=== PATIENT | female | born 2000 | race Caucasian/White ===

== ENCOUNTER 2024-08-23 11:50 | Emergency (ER) | payer OTHER, SELFPAY ==
[2024-08-23 12:38] LABS: SARS-CoV-2 Antigen CONTROL BLUE LINE VIS/BG OK; SARS-CoV-2 Antigen Rapid Res Negative (Negative)
--- NOTE | 2024-08-23 13:11 | ER ---
Nurse's Notes [facility] Name: Yair Escalante Age: 24 yrs Sex: Female : 2000 Arrival Date: 08/23/2024 Time: 11:50 Bed IW1 Private MD: Diagnosis: Acute upper respiratory infection, unspecified;Acute pharyngitis, unspecified Presentation: 08/23 11:58 Chief complaint: Patient states: she started having body aches and flu symptoms iw yesterday. patient reports everyone in her home tested positive for the flu over the last week. Coronavirus screen: Client presents with at least one sign or symptom that may indicate coronavirus-19. Ebola Screen: No symptoms or risks identified at this time. Initial Sepsis Screen: Does the patient meet any 2 criteria? No. Patient's initial sepsis screen is negative. Does the patient have a suspected source of infection? No. Patient's initial sepsis screen is negative. Risk Assessment: Do you want to hurt yourself or someone else? Patient reports no desire to harm self or others. Onset of symptoms was August 22, 2024. 11:58 Method Of Arrival: Ambulatory iw 11:58 Acuity: SILVIA 4 iw Triage Assessment: 12:00 General: Appears in no apparent distress. Behavior is calm, cooperative, appropriate iw for age, Reports feeling ill for. Pain: Complains of pain in generalized body aches. Neuro: Level of Consciousness is awake, alert, obeys commands, Oriented to person, place, time, situation, Appropriate for age. Cardiovascular: Patient's skin is warm and dry. Respiratory: Airway is patent Respiratory effort is even, unlabored, Respiratory pattern is regular, symmetrical. 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 Flu vaccine is not up to date. - Infectious Disease History:: Denies. - Social history:: Smoking status: Reported history of juuling and/or vaping. - Family history:: not pertinent. Screenin:00 [facility] ED Fall Risk Assessment (Adult) History of falling in the last 3 months, iw including since admission No falls in past 3 months (0 pts) Confusion or Disorientation No (0 pts) Intoxicated or Sedated No (0 pts) Impaired Gait No (0 pts) Mobility Assist Device Used No (0 pt) Altered Elimination No (0 pt) Score/Fall Risk Level 0 - 2 = Low Risk Oriented to surroundings, Maintained a safe environment, Educated pt \T\ family on fall prevention, incl call for assistance when getting out of bed, Assessed \T\ reinforced patient's understanding of fall precautions, Hourly rounding (assess needs \T\ fall precautionary measures) done, Used ambulatory aids as needed (educated on \T\ assisted with), Used gait belt as appropriate. Abuse screen: Denies threats or abuse. Nutritional screening: No deficits noted. Tuberculosis screening: No symptoms or risk factors identified. Assessment: 13:24 Reassessment: Patient appears in no apparent distress at this time. Patient and/or iw family updated on plan of care and expected duration. Pain level reassessed. Patient is alert, oriented x 3, equal unlabored respirations, skin warm/dry/pink. Vital Signs: 11:58 BP 130 / 87; Pulse 86; Resp 17; Temp 98.4; Pulse Ox 100% ; Weight 79.38 kg; Height 5 iw ft. 5 in. ; 11:58 Body Mass Index 29.12 (79.38 kg, 165.1 cm) ED Course: 11:54 Patient arrived in ED. ra3 11:57 Tha Talbot MD is Attending Physician. [facility] 11:59 Triage completed. iw 12:00 Arm band placed on right wrist. iw 12:05 Patient has correct armband on for positive identification. Adult w/ patient. ap3 12:05 Provided Education on: covid/flu testing information . ap3 12:05 COVID swab sent to lab. Flu and/or RSV swab sent to lab. ap3 12:05 SARS RAPID Sent. ap3 12:05 Flu Sent. ap3 12:05 No provider procedures requiring assistance completed. ap3 13:24 Linda Ritchie, RN is Primary Nurse. iw 13:25 Patient did not have IV access during this emergency room visit. iw Administered Medications: No medications were administered Medication: 12:01 VIS not applicable for this client. iw Outcome: 13:11 Discharge ordered by . [facility] 13:24 Discharged to home ambulatory, iw 13:24 Condition: good 13:24 Discharge instructions given to patient, Instructed on discharge instructions, follow up and referral plans. medication usage, Demonstrated understanding of instructions, follow-up care, medications, Prescriptions given X 4, 13:25 Patient left the ED. iw Signatures: Tha Talbot MD MD cha Williams, Irene RN RN Krystal Rai RN RN Sita Voss
--- NOTE | 2024-08-23 13:11 | EDPHYS ---
Physician Documentation [facility] Name: Yair Escalante Age: 24 yrs Sex: Female : 2000 Arrival Date: 08/23/2024 Time: 11:50 Bed IW1 Private MD: ED Physician Tha Talbot HPI: 08/23 13:07 This 24 yrs old Female presents to ER via Ambulatory with complaints of Covid/Flu test. brad 13:07 The patient presents with sore throat. The patient describes throat pain as constant, brad raw. Onset: The symptoms/episode began/occurred 2 day(s) ago. Severity of symptoms: At their worst the symptoms were moderate, in the emergency department the symptoms are unchanged. The patient or guardian reports cough, that is intermittent. Severity of symptoms: At their worst the symptoms were. Modifying factors: The symptoms are alleviated by nothing, cool environment, the symptoms are aggravated by nothing. Associated signs and symptoms: Pertinent positives: cough, fever, flu-like symptoms, Sore throat. 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 Flu vaccine is not up to date. - Infectious Disease History:: Denies. - Social history:: Smoking status: Reported history of juuling and/or vaping. - Family history:: not pertinent. ROS: 13:08 Constitutional: Negative for fever, chills, and weight loss, Eyes: Negative for injury, brad pain, redness, and discharge, ENT: Negative for injury, pain, and discharge, Neck: Negative for injury, pain, and swelling, Cardiovascular: Negative for chest pain, palpitations, and edema, Respiratory: Negative for shortness of breath, cough, wheezing, and pleuritic chest pain, Abdomen/GI: Negative for abdominal pain, nausea, vomiting, diarrhea, and constipation, Back: Negative for injury and pain, : Negative for injury, bleeding, discharge, and swelling, MS/Extremity: Negative for injury and deformity, Skin: Negative for injury, rash, and discoloration, Neuro: Negative for headache, weakness, numbness, tingling, and seizure, Psych: Negative for depression, anxiety, suicide ideation, homicidal ideation, and hallucinations, Allergy/Immunology: Negative for hives, rash, and allergies, Endocrine: Negative for neck swelling, polydipsia, polyuria, polyphagia, and marked weight changes, Hematologic/Lymphatic: Negative for swollen nodes, abnormal bleeding, and unusual bruising, Exam: 13:08 Constitutional: This is a well developed, well nourished patient who is awake, alert, brad and in no acute distress. Head/Face: Normocephalic, atraumatic. Eyes: Pupils equal round and reactive to light, extra-ocular motions intact. Lids and lashes normal. Conjunctiva and sclera are non-icteric and not injected. Cornea within normal limits. Periorbital areas with no swelling, redness, or edema. Neck: Trachea midline, no thyromegaly or masses palpated, and no cervical lymphadenopathy. Supple, full range of motion without nuchal rigidity, or vertebral point tenderness. No Meningismus. Chest/axilla: Normal chest wall appearance and motion. Nontender with no deformity. No lesions are appreciated. Cardiovascular: Regular rate and rhythm with a normal S1 and S2. No gallops, murmurs, or rubs. Normal PMI, no JVD. No pulse deficits. Respiratory: Lungs have equal breath sounds bilaterally, clear to auscultation and percussion. No rales, rhonchi or wheezes noted. No increased work of breathing, no retractions or nasal flaring. Abdomen/GI: Soft, non-tender, with normal bowel sounds. No distension or tympany. No guarding or rebound. No evidence of tenderness throughout. Back: No spinal tenderness. No costovertebral tenderness. Full range of motion. Skin: Warm, dry with normal turgor. Normal color with no rashes, no lesions, and no evidence of cellulitis. MS/ Extremity: Pulses equal, no cyanosis. Neurovascular intact. Full, normal range of motion., bilateral aka Neuro: Awake and alert, GCS 15, oriented to person, place, time, and situation. Cranial nerves II-XII grossly intact. Motor strength 5/5 in all extremities. Sensory grossly intact. Cerebellar exam normal. Normal gait. Psych: Awake, alert, with orientation to person, place and time. Behavior, mood, and affect are within normal limits. 13:08 ENT: Posterior pharynx: Airway: normal, no evidence of obstruction, Tonsils: are normal in appearance, enlarged on the right, enlarged on the left, Uvula: normal, midline, non-edematous, no erythema, swelling, is not appreciated, Vital Signs: 11:58 BP 130 / 87; Pulse 86; Resp 17; Temp 98.4; Pulse Ox 100% ; Weight 79.38 kg; Height 5 iw ft. 5 in. ; 11:58 Body Mass Index 29.12 (79.38 kg, 165.1 cm) iw MDM: 11:57 Medical Screening Exam initiated brad 13:09 Differential diagnosis: Allergic rhinitis, cocksackie virus, echovirus infection, brad gingivostomatitis, group A strep tonsillitis, influenza, laryngitis, mononucleosis, peritonsillar abscess pharyngitis, tonsillitis, upper respiratory infection, uvulitis, viral syndrome. Differential Diagnosis: Obstructed Airway Bronchitis Influenza Upper Respiratory Infection Sinusitis Pharyngitis Otitis Media Allergic Rhinitis Asthma Exacerbation Viral Syndrome Pneumonia. Data reviewed: vital signs, nurses notes, lab test result(s), Flu: negative. Consideration of Admission/Observation Escalation of care including admission/observation considered. I considered the following discharge prescriptions or medication management in the emergency department Medications were administered in the Emergency Department. See MAR. Test considered but Not performed: CT: no ct sft tissue. 12 11:57 Order name: Flu; Complete Time: 13:02 brad 12 11:57 Order name: SARS RAPID; Complete Time: 13:02 [facility] Administered Medications: No medications were administered Disposition Summary: 08/23/24 13:11 Discharge Ordered Notes: Location: Home brad Problem: new brad Symptoms: have improved brad Condition: Stable brad Diagnosis - Acute upper respiratory infection, unspecified brad - Acute pharyngitis, unspecified brad Followup: brad - With: Private Physician - When: 2 - 3 days - Reason: Recheck today's complaints, Re-evaluation by your physician Discharge Instructions: - Discharge Summary Sheet brad - Pharyngitis brad - Sore Throat brad - Upper Respiratory Infection, Adult brad - Cool Mist Vaporizer brad - Upper Respiratory Infection, Adult, [id number] brad - Pharyngitis, Dusc-rh-Kjse brad - Cough, Adult, [id number] brad - Cough, Adult brad Forms: - Medication Reconciliation Form [facility] - Antibiotic Education brad - Prescription Opioid Use brad - Patient Portal Instructions [facility] - Leadership Thank You Letter [facility] Prescriptions: - Sharon-D 12 Hour 60-120 mg Oral Tablet Sustained Release 12 hr - take 1 tablet ORAL route every 12 hours As needed; 20 tablet; Refills: 0, [facility] Product Selection Permitted - Tessalon Perles 100 mg Oral capsule - take 2 capsule ORAL route every 8 hours As needed; 30 capsule; Refills: 0, [facility] Product Selection Permitted - Zithromax Z-Geoff 250 mg Oral Tablet - take 1 tablet ORAL route as directed for 5 days Day 1 - take two (2) tablets brad one time. Day 2, 3, 4 , 5 take one (1) tablet once daily.; 6 tablet; Refills: 0, Product Selection Permitted - Tamiflu 75 mg Oral capsule - take 1 tablet ORAL route every 12 hours for 5 days; 10 tablet; Refills: 0, [facility] Product Selection Permitted Signatures: Dispatcher [employer] EDMS Tha Talbot MD MD cha Williams, Irene, RN RN iw Corrections: (The following items were deleted from the chart) 11:58 11:58 Influenza Screen (A \T\ B)+BA.LAB.BRZ ordered. EDMS EDMS 11:58 11:58 SARS-COV-2 Antigen Rapid+I.LAB.BRZ ordered. EDMS EDMS
[2024-08-23 17:39] VITALS: BP 130/87; TEMP 98.4; O2SAT 100
== END 2024-08-23 13:25 | disposition home or self-care (01) ==
LOC: ER 11:50
DX: J06.9 Acute upper respiratory infection, unspecified (principal); Z11.52 Encounter for screening for COVID-19
CPT/HCPCS: 36415; 87804; 87811; 99283